=== PATIENT | female | born 1965 | race Hispanic/Latino ===

== ENCOUNTER → 2021-12-05 | Outpatient (CLI) | payer OTHER | END | disposition home or self-care (01) | LOC: OIH 08:01 | PROVIDERS: ATTEND Nurse Practitioner Family | DX: Z13.6 Encounter for screening for cardiovascular disorders (principal); I25.10 Atherosclerotic heart disease of native coronary artery without angina pectoris; I51.5 Myocardial degeneration | CPT/HCPCS: 75571 ==

== ENCOUNTER → 2022-01-29 | Outpatient (CLI) | payer BC ==
[~2022-01-29] MED LIST: REGADENOSON 0.4 MG/5 ML PF SYG IVP SCH
== END | disposition home or self-care (01) ==
LOC: OIH 09:12
PROVIDERS: ATTEND Internal Medicine Cardiovascular Disease
DX: R07.9 Chest pain, unspecified (principal)
CPT/HCPCS: 78452; 93017; 96374; A9500 ×2; J2785

== ENCOUNTER 2022-04-23 06:00 | Day surgery (SDC) | payer BC ==
[2022-04-20 13:03] LABS: EOSINOPHILS % (AUTO) 1.5 % (0.0-8.0); MEAN CORPUSCULAR HGB CONC 33.5 g/dL (32.0-36.0); MEAN CORPUSCULAR VOLUME 86.5 fL (79-99); MONOCYTES % (AUTO) 3.6 % (3.0-13.0); NEUTROPHILS % (AUTO) 62.4 % (40.0-77.0); PLATELET COUNT (AUTO) 268 K/uL (130-400); RED BLOOD CELL COUNT(AUTO) 4.97 MIL/uL (4.00-5.50); RED CELL DISTRIBUTION WIDTH 13.4 % (11.0-15.5); WHITE BLOOD COUNT (AUTO) 8.8 K/uL (4.8-10.8)
[2022-04-20 13:17] LABS: CREATININE 0.8 mg/dL (0.5-1.5); POTASSIUM 3.8 mmol/L (3.5-5.1)
[2022-04-20 13:18] LABS: INR 0.93 (0.85-1.15)
[2022-04-20 13:19] LABS: PARTIAL THROMBOPLASTIN TIME 24.8 SEC (26.3-35.5)
[2022-04-22 11:49] VITALS: BP 145/97
[2022-04-23] VITALS (8 sets, daily range): BP systolic 99–161; BP diastolic 62–97
[~2022-04-23] VITALS: Ht 154.9 cm; Wt 57.8 kg
[~2022-04-23 06:00] MED LIST changes: +AEC81 PO; +ATOR40TA69 PO; +BENA1TAB77 PO; +CETI10TA57 PO; +COLE1TAB2 PO; +DAPA10TA PO; +METF750T46 PO; +METO-408 PO; +OMEP20CA12 PO; -REGADENOSON 0.4 MG/5 ML PF SYG IVP SCH; +SEMA2PEN SQ; +SERT-439 PO; +SITA100T12 PO
[2022-04-23] MEDS ORDERED: NITROGLYCERIN 50MG VIAL ONE (07:14)
[2022-04-23] MEDS ORDERED: IOHEXOL 350 MG/ML 100ML INFUS..BTL IV ONE (07:14)
[2022-04-23] MEDS ORDERED: LIDOCAINE PF 100MG/5ML (2%) SYRINGE 5ML ONE (07:14)
[2022-04-23] MEDS ORDERED: IOHEXOL-350 50ML VIAL IV ONE (07:14)
[2022-04-23] MEDS ORDERED: MIDAZOLAM HCL 1 MG/ML 2ML VIAL ONE ×2 (07:32→09:37)
[2022-04-23] MEDS ORDERED: FENTANYL CITRATE PF 50 MCG/1 ML 2ML VIAL ONE (07:33)
[2022-04-23] MEDS ORDERED: LABETALOL 20MG SYG IV ONE ×3 (08:22→09:08)
[2022-04-23] MEDS ORDERED: IOHEXOL-350 75 ML VIAL IV ONE ×2 (08:28→09:20)
[2022-04-23] MEDS ORDERED: HEPARIN 10,000 UNIT/10ML (1,000 UNIT/ML) VIAL ONE (08:32)
[2022-04-23] MEDS ORDERED: ASPIRIN 325MG EC TAB PO ONE (08:33)
[2022-04-23] MEDS ORDERED: CLOPIDOGREL 300MG TAB ONE (08:33)
[2022-04-23] MEDS ORDERED: 0.9%NACL 1000ML 1,000 ML IV ONE (08:40)
[2022-04-23] MEDS ORDERED: ONDANSETRON 4MG INJ ONE (09:24)
[2022-04-23] MEDS ORDERED: 0.9%NACL 1000ML 1,000 ML IV SCH (10:30)
[2022-04-23] MEDS ORDERED: CLOP75TA14 PO (12:17)
[2022-04-24] MEDS ORDERED: CEPH500B PO (19:20)
== END 2022-04-23 14:00 | disposition home or self-care (01) ==
LOC: DAH 06:00
PROVIDERS: ATTEND Internal Medicine Cardiovascular Disease
DX: I25.119 Atherosclerotic heart disease of native coronary artery with unspecified angina pectoris (principal); I10 Essential (primary) hypertension; E78.5 Hyperlipidemia, unspecified; Z79.899 Other long term (current) drug therapy; Z98.890 Other specified postprocedural states; Z90.710 Acquired absence of both cervix and uterus; Z90.49 Acquired absence of other specified parts of digestive tract; Z79.01 Long term (current) use of anticoagulants; Z95.5 Presence of coronary angioplasty implant and graft
CPT/HCPCS: 80048; 85025; 85610; 85730; 36415 ×2; 71045; 93005; 93454; 85347 ×2; C1887 ×2; C1894 ×2; C1769 ×2; C1760; C1874; C1725; Q9965; J3010; J7030; J2001; J1644 ×3; J2250 ×2; J2405; J3490; Q9967 ×3; C9600; 99156; 99157

== ENCOUNTER 2022-04-24 18:11 | Emergency (ER) | payer BC ==
[~2022-04-24] VITALS: Ht 154.9 cm; Wt 57.2 kg
[~2022-04-24 18:11] MED LIST changes: +CLOP75TA14 PO
[2022-04-24 18:54] LABS: BASOPHILS % (AUTO) 0.6 % (0.0-5.0); EOSINOPHILS % (AUTO) 1.1 % (0.0-8.0); HEMATOCRIT 38.8 % (36-48); MEAN CORPUSCULAR HEMOGLOBIN 29.1 pg (27.0-33.0); MEAN CORPUSCULAR HGB CONC 33.5 g/dL (32.0-36.0); MEAN CORPUSCULAR VOLUME 86.8 fL (79-99); MONOCYTES % (AUTO) 4.9 % (3.0-13.0); NEUTROPHILS % (AUTO) 75.9 % (40.0-77.0); PLATELET COUNT (AUTO) 257 K/uL (130-400); RED BLOOD CELL COUNT(AUTO) 4.47 MIL/uL (4.00-5.50); RED CELL DISTRIBUTION WIDTH 13.6 % (11.0-15.5); WHITE BLOOD COUNT (AUTO) 13.6 K/uL (4.8-10.8)
[2022-04-24 18:56] LABS: APPEARANCE,URINE CLOUDY (CLEAR); BILIRUBIN,URINE NEGATIVE (NEGATIVE); COLOR,URINE ORANGE (YELLOW); GLUCOSE, URINE (UA) >=1000 mg/dL (NEGATIVE); KETONES,URINE NEGATIVE (NEGATIVE); LEUKOCYTE ESTERASE ,URINE MODERATE (NEGATIVE); NITRATE,URINE NEGATIVE (NEGATIVE); OCCULT BLOOD,URINE LARGE (NEGATIVE); PH,URINE 6.5 (5.0-8.0); PROTEIN,URINE TRACE mg/dL (NEGATIVE); UROBILINOGEN,URINE 0.2 mg/dL (0.2-1.0)
[2022-04-24 19:03] LABS: POTASSIUM 3.1 mmol/L (3.5-5.1)
[2022-04-24 19:05] LABS: BACTERIA,URINE Rare /HPF (None Seen); RBC,URINE >100 /HPF (0-1); WBC,URINE 26-50 /HPF (0-1)
[2022-04-24 19:06] LABS: SQUAMOUS EPITHELIAL CELL,UR None Seen /HPF (0-2)
[2022-04-24 19:09] LABS: ALBUMIN 4.1 g/dL (3.5-5.0); TOTAL PROTEIN, SERUM 7.5 g/dL (6.0-8.3)
[2022-04-24] MEDS ORDERED: CEPH500B PO (19:20)
[2022-04-24 19:29] VITALS: BP 163/81
[2022-04-24] MEDS: CEFTRIAXONE 1G VIAL IVP ONE (19:29)
[2022-04-24] MEDS: POTASSIUM BICARB/CIT AC 25 MEQ TABLET.EFF PO ONE (19:29)
[2022-04-24] MEDS ORDERED: CEFTRIAXONE 1G VIAL IM ONE (19:30)
== END 2022-04-24 19:52 | disposition home or self-care (01) ==
LOC: EDH 18:11
DX: N30.90 Cystitis, unspecified without hematuria (principal); E11.9 Type 2 diabetes mellitus without complications; E78.00 Pure hypercholesterolemia, unspecified; I10 Essential (primary) hypertension; Z98.890 Other specified postprocedural states; Z79.899 Other long term (current) drug therapy; Z79.82 Long term (current) use of aspirin; Z90.49 Acquired absence of other specified parts of digestive tract
CPT/HCPCS: 99284; 96374; 80053; 85025; 87077; 87088; 87186; 81001; 36415; J0696

== ENCOUNTER → 2022-04-28 | Outpatient (CLI) | payer BC ==
[~2022-04-28] MED LIST changes: +CEPH500B PO
== END | disposition home or self-care (01) ==
LOC: RAH 15:57
PROVIDERS: ATTEND Student in an Organized Health Care Education/Training Program
DX: I72.4 Aneurysm of artery of lower extremity (principal)
CPT/HCPCS: 76882

== ENCOUNTER → 2022-05-11 | Outpatient (CLI) | payer BC ==
[~2022-05-11] MED LIST changes: +RANO500T3 PO
== END | disposition home or self-care (01) ==
LOC: RAH 13:11
PROVIDERS: ATTEND Internal Medicine Cardiovascular Disease
DX: M79.81 Nontraumatic hematoma of soft tissue (principal)
CPT/HCPCS: 76882

== ENCOUNTER 2022-05-12 05:44 | Observation (INO) | payer BC ==
[2022-05-10 13:13] LABS: BASOPHILS % (AUTO) 0.9 % (0.0-5.0); EOSINOPHILS % (AUTO) 1.5 % (0.0-8.0); HEMATOCRIT 44.2 % (36-48); MEAN CORPUSCULAR HEMOGLOBIN 29.6 pg (27.0-33.0); MEAN CORPUSCULAR HGB CONC 33.9 g/dL (32.0-36.0); MEAN CORPUSCULAR VOLUME 87.2 fL (79-99); MONOCYTES % (AUTO) 3.9 % (3.0-13.0); NEUTROPHILS % (AUTO) 73.1 % (40.0-77.0); PLATELET COUNT (AUTO) 319 K/uL (130-400); RED BLOOD CELL COUNT(AUTO) 5.07 MIL/uL (4.00-5.50); RED CELL DISTRIBUTION WIDTH 13.5 % (11.0-15.5); WHITE BLOOD COUNT (AUTO) 10.8 K/uL (4.8-10.8)
[2022-05-10 13:23] LABS: INR 0.93 (0.85-1.15); PROTHROMBIN TIME 9.9 SEC (9.6-11.6)
[2022-05-10 13:25] LABS: PARTIAL THROMBOPLASTIN TIME 20.9 SEC (26.3-35.5)
[2022-05-10 13:26] LABS: CREATININE 0.8 mg/dL (0.5-1.5); POTASSIUM 4.2 mmol/L (3.5-5.1)
[2022-05-11 09:40] VITALS: BP 138/83
[~2022-05-12] VITALS: Ht 154.9 cm; Wt 57.1 kg
[2022-05-12] VITALS (16 sets, daily range): BP systolic 103–146; BP diastolic 62–97
[~2022-05-12 05:44] MED LIST changes: +0.9% NACL 500ML IV.SOLN 500 ML IV SCH
[2022-05-12] MEDS ORDERED: 0.9%NACL 1000ML 1,000 ML IV ONE (06:26)
[2022-05-12] MEDS ORDERED: LIDOCAINE HCL 1% 20 ML VIAL ONE (07:18)
[2022-05-12] MEDS ORDERED: HEPARIN 10,000 UNIT/10ML (1,000 UNIT/ML) VIAL ONE (07:18)
[2022-05-12] MEDS ORDERED: IOHEXOL 350 MG/ML 100ML INFUS..BTL IV ONE (07:18)
[2022-05-12] MEDS ORDERED: NITROGLYCERIN 50MG VIAL ONE (07:18)
[2022-05-12] MEDS ORDERED: NICARDIPINE 25MG INJ IV ONE (07:22)
[2022-05-12] MEDS ORDERED: MIDAZOLAM HCL 1 MG/ML 2ML VIAL ONE ×2 (07:49→08:51)
[2022-05-12] MEDS ORDERED: FENTANYL CITRATE PF 50 MCG/1 ML 2ML VIAL ONE ×2 (07:49→08:51)
[2022-05-12] MEDS ORDERED: CLOPIDOGREL 300MG TAB ONE (07:56)
[2022-05-12] MEDS ORDERED: IOHEXOL-350 75 ML VIAL IV ONE (08:43)
[2022-05-12] MEDS ORDERED: HYDRALAZINE 20MG/ML VIAL ONE (08:54)
[2022-05-12] MEDS ORDERED: 0.9%NACL 1000ML 1,000 ML IV SCH (10:00)
[2022-05-12] MEDS ORDERED: GLUCAGON 1MG KIT 1 MG ML IM PRN (10:00)
[2022-05-12] MEDS ORDERED: DEXTROSE 50%-WATER 50 ML DISP.SYRIN IV PRN (10:00)
[2022-05-12] MEDS ORDERED: NITROGLYCERIN 0.4 MG SL TAB SL ONE (10:05)
[2022-05-12] MEDS: NITROGLYCERIN 0.4 MG SL TAB SL SCH (10:30)
[2022-05-12] MEDS ORDERED: NITROGLYCERIN 0.4 MG SL TAB SL PRN (10:30)
[2022-05-12] MEDS ORDERED: ACETAMINOPHEN 500 MG TABLET ONE (12:08)
[2022-05-12] MEDS ORDERED: ACETAMINOPHEN 500 MG TABLET PO ONE (12:30)
[2022-05-12] MEDS: CEPHALEXIN 500 MG CAPSULE PO SCH ×3 (13:00→20:41)
[2022-05-12] MEDS ORDERED: ACETAMINOPHEN 325 MG TAB PO PRN (20:30)
[2022-05-12] MEDS: RANOLAZINE 500 MG TAB.SR.12H PO SCH (20:42)
[2022-05-12] MEDS ORDERED: METFORMIN 750 MG PO SCH (21:00)
[2022-05-12] MEDS ORDERED: ATORVASTATIN 40 MG TABLET PO SCH (21:00)
[2022-05-13 04:06] VITALS: BP 154/86
[2022-05-13 04:27] LABS: HEMATOCRIT 39.8 % (36-48); MEAN CORPUSCULAR HEMOGLOBIN 29.2 pg (27.0-33.0); MEAN CORPUSCULAR HGB CONC 33.4 g/dL (32.0-36.0); MEAN CORPUSCULAR VOLUME 87.3 fL (79-99); RED BLOOD CELL COUNT(AUTO) 4.56 MIL/uL (4.00-5.50); RED CELL DISTRIBUTION WIDTH 13.7 % (11.0-15.5); WHITE BLOOD COUNT (AUTO) 9.1 K/uL (4.8-10.8)
[2022-05-13 07:07] VITALS: BP 137/75
[2022-05-13] MEDS ORDERED: CEPHALEXIN 250 MG CAPSULE ONE (08:23)
[2022-05-13] MEDS: RANOLAZINE 500 MG TAB.SR.12H PO SCH (08:35)
[2022-05-13] MEDS: LINAGLIPTIN 5 MG TABLET PO SCH ×2 (08:38→08:52)
[2022-05-13] MEDS: CEPHALEXIN 500 MG CAPSULE PO SCH (08:59)
[2022-05-13] MEDS ORDERED: COLESTIPOL 2 GM PO SCH (09:00)
[2022-05-13] MEDS ORDERED: CETIRIZINE HCL 5 MG TABLET PO SCH (09:00)
[2022-05-13] MEDS ORDERED: METOPROLOL SUCCINATE 25 MG TAB.SR.24H PO SCH (09:00)
[2022-05-13] MEDS ORDERED: BENAZEPRIL HCL 10 MG TABLET PO SCH (09:00)
[2022-05-13] MEDS ORDERED: PANTOPRAZOLE 40 MG TAB DR PO SCH (09:00)
[2022-05-13] MEDS ORDERED: SERTRALINE HCL 50 MG TABLET PO SCH (09:00)
[2022-05-13] MEDS ORDERED: ASPIRIN 81 MG EC TAB PO SCH (09:00)
[2022-05-13] MEDS ORDERED: CLOPIDOGREL 75MG TAB PO SCH (09:00)
[2022-05-13] MEDS ORDERED: HYDROCHLOROTHIAZIDE 25 MG TABLET PO SCH (09:00)
[2022-05-13] MEDS ORDERED: **HM**FARXIGA 10MG PO SCH (09:00)
[2022-05-13] MEDS: NITROGLYCERIN 0.4 MG SL TAB SL SCH (10:01)
[2022-05-19] MEDS ORDERED: OZEMPIC 2 MG SQ SCH (09:00)
== END 2022-05-13 12:02 | disposition home or self-care (01) ==
LOC: DAH 05:44 → DAHIP 05:45 → 2DH 16:39
PROVIDERS: ADMIT Internal Medicine; ATTEND Internal Medicine
DX: I25.10 Atherosclerotic heart disease of native coronary artery without angina pectoris (principal); I10 Essential (primary) hypertension; R07.89 Other chest pain; E83.52 Hypercalcemia; E11.9 Type 2 diabetes mellitus without complications; E78.5 Hyperlipidemia, unspecified; R93.1 Abnormal findings on diagnostic imaging of heart and coronary circulation; F17.210 Nicotine dependence, cigarettes, uncomplicated; Z95.5 Presence of coronary angioplasty implant and graft; Z90.711 Acquired absence of uterus with remaining cervical stump; Z95.1 Presence of aortocoronary bypass graft; Z98.891 History of uterine scar from previous surgery; Z90.710 Acquired absence of both cervix and uterus; Z79.82 Long term (current) use of aspirin; Z79.899 Other long term (current) drug therapy; Z98.890 Other specified postprocedural states
CPT/HCPCS: 80048 ×2; 85025; 85610; 85730; 36415 ×3; 71045; 93005 ×2; 93458; 85347 ×2; 82948 ×5; 85027; A6260; C1769 ×3; C1894 ×2; C1760; C1887; C1874 ×2; C1725 ×2; Q9965; G0378 ×26; J3010 ×2; J7030; J0360; J3490 ×2; J1644 ×2; J2250 ×2; Q9967 ×2; A4215; A4223 ×3; A4222; A4221; A4663; A4216; A4606; C9600; 99156; 99157

== ENCOUNTER → 2023-07-04 | Outpatient (CLI) | payer BC ==
[~2023-07-04] MED LIST changes: -0.9% NACL 500ML IV.SOLN 500 ML IV SCH; +CLOP-31 PO; -CLOP75TA14 PO
== END | disposition home or self-care (01) ==
LOC: SHCH 13:32
PROVIDERS: ATTEND Internal Medicine Cardiovascular Disease
DX: R01.1 Cardiac murmur, unspecified (principal)
CPT/HCPCS: 93306

== ENCOUNTER → 2024-03-29 | Outpatient (CLI) | payer BC ==
[2024-03-29 16:40] LABS: BILIRUBIN,TOTAL 0.4 mg/dL (0.2-1.0); CREATININE 0.8 mg/dL (0.5-1.0); POTASSIUM 3.8 mmol/L (3.5-5.1)
== END | disposition home or self-care (01) ==
LOC: LAB 13:38
PROVIDERS: ATTEND Internal Medicine Cardiovascular Disease
DX: R07.9 Chest pain, unspecified (principal)
CPT/HCPCS: 36415; 80053

== ENCOUNTER → 2024-04-04 | Outpatient (CLI) | payer BC ==
[~2024-04-04] MED LIST changes: +IOHEXOL 350 MG/ML 100ML INFUS..BTL IV ONE; +METOPROLOL TARTRATE 1 MG/ML 5ML VIAL IV ONE
== END | disposition home or self-care (01) ==
LOC: RAH 07:45
PROVIDERS: ATTEND Internal Medicine Cardiovascular Disease
DX: R07.9 Chest pain, unspecified (principal)
CPT/HCPCS: 75574; J3490 ×3; Q9967

== ENCOUNTER 2024-04-16 10:06 | Emergency (ER) | payer BC ==
[~2024-04-16] VITALS: Ht 154.9 cm; Wt 52.2 kg
[~2024-04-16 10:06] MED LIST changes: -IOHEXOL 350 MG/ML 100ML INFUS..BTL IV ONE; -METOPROLOL TARTRATE 1 MG/ML 5ML VIAL IV ONE
[2024-04-16 10:14] VITALS: BP 199/108; PULSE 89; RESP 16
[2024-04-16 10:32] LABS: BASOPHILS # (AUTO) 0.07 K/uL (0.00-0.20); BASOPHILS % (AUTO) 0.8 % (0.0-5.0); EOSINOPHILS # (AUTO) 0.15 K/uL (0.00-0.70); EOSINOPHILS % (AUTO) 1.7 % (0.0-8.0); HEMATOCRIT 48.9 % (36-48); IMMATURE GRANULOCYTE ABSOLUTE 0.05 K/uL (0-1); LYMPHOCYTES % (AUTO) 23.3 % (21.0-51.0); MEAN CORPUSCULAR HEMOGLOBIN 30.5 pg (27.0-33.0); MEAN CORPUSCULAR HGB CONC 33.3 g/dL (32.0-36.0); MEAN CORPUSCULAR VOLUME 91.6 fL (79-99); MONOCYTES # (AUTO) 0.4 K/uL (0.1-1.0); MONOCYTES % (AUTO) 4.2 % (3.0-13.0); NEUTROPHILS % (AUTO) 69.4 % (40.0-77.0); PLATELET COUNT (AUTO) 269 K/uL (130-400); RED BLOOD CELL COUNT(AUTO) 5.34 MIL/uL (4.00-5.50); RED CELL DISTRIBUTION WIDTH 12.4 % (11.0-15.5); WHITE BLOOD COUNT (AUTO) 8.6 K/uL (4.8-10.8)
[2024-04-16 10:43] LABS: CREATININE 0.8 mg/dL (0.5-1.0); POTASSIUM 3.6 mmol/L (3.5-5.1)
[2024-04-16 10:47] LABS: ALBUMIN 4.7 g/dL (3.5-5.0); BILIRUBIN,TOTAL 0.9 mg/dL (0.2-1.0); MAGNESIUM 1.7 mg/dL (1.80-2.40); TOTAL PROTEIN, SERUM 8.5 g/dL (6.0-8.3)
[2024-04-16 11:03] LABS: INR 0.97 (0.85-1.15); PARTIAL THROMBOPLASTIN TIME 23.6 SEC (26.3-35.5); PROTHROMBIN TIME 10.3 SEC (9.6-11.6)
[2024-04-16] MEDS: ASPIRIN 325MG TAB PO ONE (11:27)
[2024-04-16] MEDS: NITROGLYCERIN 1GM OINT 1 INCH/1GM TD ONE (11:27)
[2024-04-16] MEDS: MORPHINE 2 MG SYG IVP ONE (11:28)
[2024-04-16 13:40] LABS: ADD UA MICROSCOPIC YES; APPEARANCE,URINE CLEAR (CLEAR); BILIRUBIN,URINE NEGATIVE (NEGATIVE); COLOR,URINE LIGHT-YELLOW (YELLOW); GLUCOSE, URINE (UA) >=1000 mg/dL (NEGATIVE); KETONES,URINE NEGATIVE (NEGATIVE); LEUKOCYTE ESTERASE ,URINE NEGATIVE Leu/uL (NEGATIVE); NITRATE,URINE NEGATIVE (NEGATIVE); OCCULT BLOOD,URINE NEGATIVE (NEGATIVE); PH,URINE 6.5 (5.0-8.0); PROTEIN,URINE NEGATIVE (NEGATIVE); UROBILINOGEN,URINE 0.2 mg/dL (0.2-1.0)
[2024-04-16 13:55] LABS: MUCUS,URINE RARE LPF (None Seen); RBC,URINE 0-1 /HPF (0-1); SQUAMOUS EPITHELIAL CELL,UR RARE /HPF (0-2); WBC,URINE 0-1 /HPF (0-1)
== END 2024-04-16 14:40 | disposition home or self-care (01) ==
LOC: EDH 10:06
DX: R07.89 Other chest pain (principal); E11.65 Type 2 diabetes mellitus with hyperglycemia; E78.00 Pure hypercholesterolemia, unspecified; I10 Essential (primary) hypertension; Z20.822 Contact with and (suspected) exposure to COVID-19; Z79.82 Long term (current) use of aspirin; Z79.84 Long term (current) use of oral hypoglycemic drugs; Z79.899 Other long term (current) drug therapy; Z90.49 Acquired absence of other specified parts of digestive tract; Z98.890 Other specified postprocedural states; Z90.710 Acquired absence of both cervix and uterus
CPT/HCPCS: 99284; 96374; 71045; 87426; 83735; 84484 ×3; 80053; 85025; 85610; 85730; 81001; 36415; 93005 ×2; J2270

== ENCOUNTER 2024-05-01 09:11 | Observation (INO) | payer BC ==
[2024-04-27 13:26] LABS: BASOPHILS # (AUTO) 0.05 K/uL (0.00-0.20); BASOPHILS % (AUTO) 0.6 % (0.0-5.0); EOSINOPHILS % (AUTO) 1.3 % (0.0-8.0); IMMATURE GRANULOCYTE ABSOLUTE 0.04 K/uL (0-1); LYMPHOCYTES # (AUTO) 2.3 K/uL (1.0-4.8); LYMPHOCYTES % (AUTO) 29.4 % (21.0-51.0); MEAN CORPUSCULAR HEMOGLOBIN 30.7 pg (27.0-33.0); MEAN CORPUSCULAR HGB CONC 34.5 g/dL (32.0-36.0); MEAN CORPUSCULAR VOLUME 89.1 fL (79-99); MONOCYTES # (AUTO) 0.4 K/uL (0.1-1.0); MONOCYTES % (AUTO) 4.8 % (3.0-13.0); NEUTROPHILS % (AUTO) 63.4 % (40.0-77.0); PLATELET COUNT (AUTO) 285 K/uL (130-400); RED BLOOD CELL COUNT(AUTO) 4.49 MIL/uL (4.00-5.50); RED CELL DISTRIBUTION WIDTH 12.4 % (11.0-15.5); WHITE BLOOD COUNT (AUTO) 7.9 K/uL (4.8-10.8)
[2024-04-27 13:37] LABS: CREATININE 0.8 mg/dL (0.5-1.0); POTASSIUM 3.8 mmol/L (3.5-5.1)
[2024-04-27 13:39] LABS: INR 0.95 (0.85-1.15); PROTHROMBIN TIME 10.3 SEC (9.6-11.6)
[2024-04-27 13:45] VITALS: BP 118/75; PULSE 80; RESP 18
[2024-04-27 13:58] LABS: B-TYPE NATRIURETIC PEPTIDE 9 pg/mL (0-100)
[2024-04-27 14:05] LABS: PARTIAL THROMBOPLASTIN TIME 25.8 SEC (26.3-35.5)
[2024-05-01] VITALS (11 sets, daily range): BP systolic 124–161; BP diastolic 67–105; PULSE 70–86; RESP 14–18; O2SAT 98–99
[~2024-05-01] VITALS: Ht 154.9 cm; Wt 54.6 kg
[~2024-05-01 09:11] MED LIST changes: -CEPH500B PO; -COLE1TAB2 PO; -METO-408 PO; +NICO-704 TD; +PROP20TA7 PO; +RANO10005 PO; -RANO500T3 PO; +SEMA1PEN3 SQ; -SEMA2PEN SQ
[2024-05-01] MEDS: 0.9%NACL 1000ML 1,000 ML IV ONE (10:38)
[2024-05-01] MEDS ORDERED: LIDOCAINE HCL 400MG/20ML VIAL ONE (13:23)
[2024-05-01] MEDS ORDERED: FENTanyl CITRate PF 50 MCG/1 ML 2ML VIAL ONE (13:24)
[2024-05-01] MEDS ORDERED: niCARDIpine 25MG INJ IV ONE (13:25)
[2024-05-01] MEDS ORDERED: MIDAZOLAM HCL 1 MG/ML 2ML VIAL ONE ×2 (13:25→14:52)
[2024-05-01] MEDS ORDERED: HEParin 10,000 UNIT/10ML (1,000 UNIT/ML) VIAL ONE (13:25)
[2024-05-01] MEDS ORDERED: IOHEXOL 350 MG/ML 100ML INFUS..BTL IV ONE ×2 (13:25→13:35)
[2024-05-01] MEDS ORDERED: HEParin-NS 1,000 UNIT/500 ML 1,000 ML IV ONE (13:26)
[2024-05-01] MEDS ORDERED: NITROGLYCERIN 50MG VIAL ONE (13:26)
[2024-05-01] MEDS ORDERED: IOHEXOL-350 50ML VIAL IV ONE (14:09)
[2024-05-01] MEDS ORDERED: CLOPIDOGREL 300MG TAB ONE (14:12)
[2024-05-01] MEDS ORDERED: HEParin-NS 1,000 UNIT/500 ML 500 ML IV ONE (14:50)
[2024-05-01] MEDS: 0.9%NACL 1000ML 1,000 ML IV SCH (16:00)
[2024-05-01] MEDS: acetaMINOPHEN 500 MG TABLET ONE (17:04)
[2024-05-01] MEDS: ATORVASTATIN 40 MG TABLET PO SCH (20:42)
[2024-05-01] MEDS: RANOLAZINE 500 MG TAB.SR.12H PO SCH (20:42)
[2024-05-01] MEDS: PROPRANOLOL HCL 20 MG TAB PO SCH (20:43)
[2024-05-01] MEDS ORDERED: NON-FORMULARY MEDICATION 1 EACH (Ranolazine (Ranolazine ER) 1,000 MG) PO SCH (21:00)
[2024-05-02 03:52] VITALS: BP 141/89; PULSE 75; RESP 18
[2024-05-02 04:14] LABS: HEMATOCRIT 37.9 % (36-48); MEAN CORPUSCULAR HEMOGLOBIN 30.2 pg (27.0-33.0); MEAN CORPUSCULAR HGB CONC 33.5 g/dL (32.0-36.0); MEAN CORPUSCULAR VOLUME 90.2 fL (79-99); RED BLOOD CELL COUNT(AUTO) 4.2 MIL/uL (4.00-5.50); RED CELL DISTRIBUTION WIDTH 12.8 % (11.0-15.5); WHITE BLOOD COUNT (AUTO) 8.9 K/uL (4.8-10.8)
[2024-05-02 04:22] LABS: CREATININE 0.8 mg/dL (0.5-1.0); POTASSIUM 3.6 mmol/L (3.5-5.1)
[2024-05-02 07:00] VITALS: BP 133/98; PULSE 79; RESP 20
[2024-05-02] MEDS: ASPIRIN 81 MG EC TAB PO SCH (07:56)
[2024-05-02] MEDS: SERTraline HCL 50 MG TABLET PO SCH (07:57)
[2024-05-02] MEDS: ceTIRIzine HCL 5 MG TABLET PO SCH (07:57)
[2024-05-02] MEDS: CLOPIDOGREL 75MG TAB PO SCH (07:57)
[2024-05-02] MEDS: beNAZEPril HCL 10 MG TABLET PO SCH (07:57)
[2024-05-02] MEDS: PANTOPRAZOLE 40 MG TAB DR PO SCH (07:57)
[2024-05-02] MEDS: hydroCHLOROthiazide 25 MG TABLET PO SCH (07:58)
[2024-05-02 08:00] VITALS: O2SAT 99
[2024-05-02] MEDS: acetaMINOPHEN 325 MG TAB PO PRN (08:38)
[2024-05-02] MEDS ORDERED: [UNRECOGNIZED DRUG - OTHER] PO SCH (09:00)
[2024-05-02] MEDS ORDERED: NON-FORMULARY MEDICATION 1 EACH (Omeprazole 20 MG) PO SCH (09:00)
[2024-05-02] MEDS ORDERED: HYDROCHLOROTHIAZIDE PO SCH (09:00)
[2024-05-02] MEDS ORDERED: NON-FORMULARY MEDICATION 1 EACH (Cetirizine HCl 10 MG) PO SCH (09:00)
[2024-05-02] MEDS ORDERED: BENAZEPRIL PO SCH (09:00)
[2024-05-02] MEDS: Dapagliflozin Propanediol (Farxiga) 10 MG PO SCH (10:19)
[2024-05-02 11:00] VITALS: BP 126/85; PULSE 78; RESP 20
[2024-05-02 16:00] VITALS: BP 126/85; PULSE 78; RESP 20
[2024-05-02] MEDS ORDERED: PRAS10TA9 PO (17:29)
== END 2024-05-02 17:50 | disposition home or self-care (01) ==
LOC: DAH 09:11 → DAHIP 09:12 → 2DH 18:02
PROVIDERS: ADMIT Internal Medicine Cardiovascular Disease; ATTEND Internal Medicine Cardiovascular Disease
DX: I25.10 Atherosclerotic heart disease of native coronary artery without angina pectoris (principal); R93.1 Abnormal findings on diagnostic imaging of heart and coronary circulation; E78.5 Hyperlipidemia, unspecified; E11.9 Type 2 diabetes mellitus without complications; K21.9 Gastro-esophageal reflux disease without esophagitis; K57.92 Diverticulitis of intestine, part unspecified, without perforation or abscess without bleeding; F41.9 Anxiety disorder, unspecified; Z79.84 Long term (current) use of oral hypoglycemic drugs; Z90.49 Acquired absence of other specified parts of digestive tract; Z90.710 Acquired absence of both cervix and uterus; Z79.899 Other long term (current) drug therapy
CPT/HCPCS: 80048 ×2; 83880; 85025; 85610; 85730; 36415 ×3; 71045; 93005; 93458; 85347; 82948 ×3; 85027; C1894 ×2; C1769 ×3; C1725 ×3; C1760; C1874; C1887 ×2; Q9965 ×2; G0378 ×24; J3010; J3490 ×2; J7030; J1644 ×3; J2250 ×2; Q9967 ×2; A4215; A4223 ×3; A4222; A4221; A4663; A4216; A4606; C9600; 99156; 99157

== ENCOUNTER → 2025-01-26 | Outpatient (CLI) | payer BC ==
[~2025-01-26] MED LIST changes: -CLOP-31 PO; +PRAS10TA9 PO
--- NOTE | 2025-01-28 08:57 | HMCIMG ---
Exam Type: MAMMO SCREENING BILATERAL Clinical Information: ROUTINE SCREENING Comparison: July 07, 2021 Technique: Mammogram with CAD was performed with CC and MLO projections. CAD shows no worrisome regions. FINDINGS: The breasts are heterogeneously dense, which may obscure small masses. No dominant mass or suspicious microcalcification identified. There is no nipple retraction or skin thickening. Benign-appearing calcifications are seen. CAD shows no worrisome regions. IMPRESSION: 1. No mammographic signs of malignancy. 2. Routine follow-up recommended. CATEGORY 2: BENIGN FINDINGS Note: A negative x-ray should not delay biopsy if a dominant or clinically suspicious mass is present, since 8-10% of cancers are not identified by mammography. Dense breasts may obscure an underlying neoplasm.
== END | disposition home or self-care (01) ==
LOC: RAH 10:57
PROVIDERS: ATTEND Nurse Practitioner Family
DX: Z12.31 Encounter for screening mammogram for malignant neoplasm of breast (principal); R92.333 Mammographic heterogeneous density, bilateral breasts; R92.1 Mammographic calcification found on diagnostic imaging of breast
CPT/HCPCS: 77067

== ENCOUNTER → 2025-02-01 | Outpatient (CLI) | payer BC ==
[~2025-02-01] MED LIST changes: +IOHEXOL 350 MG/ML 100ML INFUS..BTL IV ONE
--- NOTE | 2025-02-01 11:37 | HMCIMG ---
CT CARDIAC ANGIO W/CONT. CCTA HISTORY: Chest pain COMPARISON: None TECHNIQUE: Multiple sequential axial images of the chest were obtained along with the CT angiogram of the chest study. Patient was given 100 cc of Omnipaque through intravenous route. FINDINGS: There is no evidence of pulmonary nodule or parenchymal disease. No pleural effusion or pericardial effusion is seen. There is no evidence of pneumothorax. There are normal size mediastinal and hilar lymph nodes. The heart is not enlarged. Degenerative changes of the thoracolumbar spine are present. IMPRESSION: 1. No evidence of pulmonary nodule or effusion is seen. Please see CT angiogram report of coronary arteries.
== END | disposition home or self-care (01) ==
LOC: RAH 08:11
PROVIDERS: ATTEND Internal Medicine Cardiovascular Disease
DX: R07.9 Chest pain, unspecified (principal); M47.815 Spondylosis without myelopathy or radiculopathy, thoracolumbar region
CPT/HCPCS: 75574; Q9967

== ENCOUNTER 2025-06-26 06:42 | Emergency (ER) | payer BC ==
[~2025-06-26] VITALS: Ht 154.9 cm; Wt 55.3 kg
[~2025-06-26 06:42] MED LIST changes: +COLE1TAB2 PO; -IOHEXOL 350 MG/ML 100ML INFUS..BTL IV ONE; -NICO-704 TD
--- NOTE | 2025-06-26 07:11 | ERN ---
ED Note History of Present Illness Stated Complaint: C/O PAIN W/BLEEDING TO RIGHT ARM Chief Complaint: Upper Extremity Pain/Injury Time Seen by MD: 06:56 Dictation: This is a 59-year-old female who presented to the emergency room with her spouse with complaints of right upper extremity pain and bleeding that just started yesterday Patient stated that she usually places the freestyle Sheron sensor on her right arm lateral deltoid area. Knee this time after she placed it she started having pain as well as bleeding from the site. She tried to apply pressure but did not stop. She packed it and put a bandage and came into the ER for further evaluation She takes aspirin and prasugrel . Temperature 98.1 pulse 84 respirations 18 blood pressure 158/107 pulse oximetry of 98% on room air Chronic medical problems include diabetes mellitus, hypertension, hypercholesterolemia-.-patient is on insulin, Ozempic, metformin Januvia and Farxiga for her diabetes and other extensive list of medication. Allergies: Coded Allergies: No Known Drug Allergies (Verified Allergy, Unknown, 01/28/22) niacin (Verified Allergy, Unknown, 02/18/25) Home Meds Active Scripts Prasugrel HCl (Prasugrel HCl) 10 Mg Tablet, 10 MG PO DAILY, #30 TAB 3 Refills Stop clopidogrel Prov:RU LUNA AGACN 05/02/24 Reported Medications Colestipol HCl (Colestipol HCl) 1 Gram Tablet, 1 GM PO DAILY PRN for ABDOMINAL PAIN, TAB 02/18/25 Semaglutide (Ozempic) 1 Mg/0.75 Ml (4 Mg/3 Ml) Pen.injctr, 1 MG SQ SAT 04/27/24 Propranolol HCl (Propranolol HCl) 20 Mg Tablet, 20 MG PO BID, TAB 04/27/24 Ranolazine (Ranolazine ER) 1,000 Mg Tab.er.12h, 1000 MG PO BID, TAB 04/27/24 Atorvastatin Calcium (LIPITOR) 80 Mg Tablet, 80 MG PO HS, TAB 04/22/22 Metformin HCl (Metformin HCl ER) 750 Mg Tab.er.24h, 750 MG PO HS, TAB 04/22/22 Aspirin (ASPIRIN 81 MG ECTAB) 81 Mg Ectab, 81 MG PO DAILY, TAB.EC 04/22/22 Dapagliflozin Propanediol (Farxiga) 10 Mg Tablet, 10 MG PO DAILY, TAB 04/22/22 Sertraline HCl (Sertraline HCl) 50 Mg Tablet, 50 MG PO DAILY, TAB 04/22/22 Cetirizine HCl (Cetirizine HCl) 10 Mg Tablet, 10 MG PO DAILY, TAB 04/22/22 Benazepril/Hydrochlorothiazide (Benazepril-Hctz 10-12.5 mg Tab) 1 Each Tablet, 1 EACH PO DAILY, TAB 04/22/22 Omeprazole (Omeprazole) 20 Mg Capsule.dr, 20 MG PO DAILY, CAP 04/22/22 Sitagliptin Phosphate (Januvia) 100 Mg Tablet, 100 MG PO DAILY, TAB 04/22/22 Past Medical History Past Medical History: Diabetes-Type II, High Cholesterol, Hypertension Surgical History: Other Surgical History Other: CARDIAC STENTS X 3 Family History: Negative Social History: Negative History: Not Applicable RN Note Reviewed/Agreed w/PFSH: Yes Review of System Dictation Constitutional: Negative for fever,chills, and weight loss Eyes: Negative for injury, pain,redness, and discharge ENT: Negative for injury,pain or swelling Cardiovascular: Negative for chest pain, palpitations, and edema Respiratory: Negative for shortness of breath, cough, and wheezing, Abdomen/GI: Negative for abdominal pain, nausea, vomiting, diarrhea, and constipation Back: Negative for injury and pain : Negative for injury, bleeding and discharge MS/Extremity: Negative for injury and deformity positive for pain in the right lateral arm and bleeding Skin: Negative for rash, and discoloration Neuro: Negative for headache, weakness, numbness, tingling, and seizure Psych: Negative for suicide ideation, homicidal ideation, and hallucinations Initial Vital Sign VS Vital Signs Date Time Temp Pulse Resp B/P (MAP) Pulse Ox O2 Delivery O2 Flow Rate FiO2 06/26/25 06:45 98.1 84 18 158/107 98 Room Air 06/26/25 07:40 0 21 Physical Exam Dictation General: awake, alert, NAD Head/Face: Normocephalic, atraumatic Eyes: PERRL, EOMI, vision at baseline ENT: oral cavity clear, TMs clear, no signs of infection Neck: Trachea midline, supple, no nuchal rigidity Cardiovascular: RRR, normal S1/S2, No MRGs, no JVD Respiratory: CTAB, no respiratory distress, No rales or wheezes Abdomen: Soft, non-tender, non-distended, normal bowel sounds, no guarding or rebound. Skin: Warm, dry, normal turgor, no rash MS/Extremity: Pulses equal, no cyanosis, neurovascular intact, FROM right arm deltoid area freestyle Sheron is in place with an [place] bandage and dressing Neuro: COAx4, GCS 15, strength 5/5, CN 2-12 intact, normal cerebellar exam, normal gait, Psych: Normal behavior, mood, and affect normal Extremities-trace edema without any palpable cords, Homans sign is negative Results (Laboratory/Radiology) Laboratory/Radiology Laboratory Tests Test 06/26/25 07:05 White Blood Count 7.3 K/uL (4.8-10.8) Red Blood Count 4.42 MIL/uL (4.00-5.50) Hemoglobin 12.5 g/dL (12.0-16.0) Hematocrit 39.1 % (36-48) Mean Corpuscular Volume 88.5 fL (79-99) Mean Corpuscular Hemoglobin 28.3 pg (27.0-33.0) Mean Corpuscular Hemoglobin Concent 32.0 g/dL (32.0-36.0) Red Cell Distribution Width 13.9 % (11.0-15.5) Platelet Count 298 K/uL (130-400) Mean Platelet Volume 9.3 fL (7.5-10.5) Immature Granulocyte % (Auto) 0.4 % (0-1) Neutrophils (%) (Auto) 68.4 % (40.0-77.0) Lymphocytes (%) (Auto) 22.4 % (21.0-51.0) Monocytes (%) (Auto) 6.0 % (3.0-13.0) Eosinophils (%) (Auto) 1.8 % (0.0-8.0) Basophils (%) (Auto) 1.0 % (0.0-5.0) Neutrophils # (Auto) 5.0 K/uL (1.8-7.7) Lymphocytes # (Auto) 1.6 K/uL (1.0-4.8) Monocytes # (Auto) 0.4 K/uL (0.1-1.0) Eosinophils # (Auto) 0.13 K/uL (0.00-0.70) Basophils # (Auto) 0.07 K/uL (0.00-0.20) Absolute Immature Granulocyte (auto 0.03 K/uL (0-1) Nucleated Red Blood Cells 0.0 % (0.0-0.19) Sodium Level 137 mmol/L (136-145) Potassium Level 3.8 mmol/L (3.5-5.1) Chloride Level 98 mmol/L (101-111) L Carbon Dioxide Level 29 mmol/L (21-32) Blood Urea Nitrogen 19 mg/dL (7-18) H Creatinine 0.7 mg/dL (0.5-1.0) Glomerular Filtration Rate Calc 98 mL/min (>90) Random Glucose 154 mg/dL (70-105) H Total Calcium 9.1 mg/dL (8.5-10.1) Labs Reviewed?: Yes ED Course ED Course Orders Procedure Category Date Status Time Cbc With Differential LAB 06/26/25 Complete 07:01 Basic Metabolic Panel LAB 06/26/25 Complete 07:01 Tetanus,Diphtheria PHA 06/26/25 Complete Tox [Adult] (Diphther 08:00 Wear Arm Sling When CPOE 06/26/25 Transmitted Ambulating 08:17 Bacitracin PHA 06/26/25 Complete (Bacitracin) 08:30 Current Medications Medications (Trade) Dose Ordered Sig/Nader Route PRN Reason Start Time Stop Time Status Last Admin Dose Admin Bacitracin (Bacitracin) 1 each ONCE ONCE TP 06/26/25 08:30 06/26/25 08:31 DC 06/26/25 08:42 Tetanus/ Diphtheria Toxoids Adsorbed (DiphthERIA-teTANUS TOXOID [ADULT]/ DECAVAC) 0.5 ml ONCE ONCE IM 06/26/25 08:00 06/26/25 08:01 DC 06/26/25 08:44 Vital Signs Date Time Temp Pulse Resp B/P (MAP) Pulse Ox O2 Delivery O2 Flow Rate FiO2 06/26/25 09:00 97.9 76 16 136/91 98 Room Air* 0 21 06/26/25 07:40 97.9 82 16 160/97 98 Room Air* 0 21 06/26/25 06:45 98.1 84 18 158/107 98 Room Air Medical Decision Making MDM Differential diagnosis: Puncture wound, bleeding wound, arterial bleed, venous oozing Rationale: Tests considered and ordered secondary to shared decision making include: Previous outside records reviewed: Old ER visits. Risk of complication and/or morbidity or mortality of patient management: None Medications-Per medication reconciliation Need for hospitalization: Patient does not meet criteria for hospitalization. Need for emergency major/minor surgery: No Patient is a 59-year-old female coming in to be evaluated for right shoulder wound that was bleeding. Per patient she put on her glucose monitor and since then has been bleeding. She followed up with the PCP they put a quick clot on it but has not worked. In the ED labs were collected to make sure there was no anemia or other complications of her diabetes. Using lidocaine local anesthesia was performed using cat gut 6-0, 3 sutures were placed hemostasis obtained. Patient will be discharged in stable condition Procedure Wound Location: upper extremity Wound's Depth, Shape: superficial Irrigated w/ Saline (ccs): 100 Betadine Prep?: Yes Volume Anesthetic (ccs): 5 Wound Repaired With: sutures Suture Size/Type: 6:0 Number of Sutures: 3 Problem List Problem List: (1) Hemorrhage from wound DX & DISP Disposition: Discharge Departure Impression: Primary Impression: Hemorrhage from wound Condition: Stable Additional Instructions: FOLLOW-UP WITH PRIMARY CARE PROVIDER IN 1 TO 2 DAYS. TAKE MEDICATIONS DIRECTED HERE IN THE EMERGENCY ROOM. OKAY TO CONTINUE HOME MEDICATIONS UNLESS OTHERWISE DISCUSSED DURING YOUR VISIT IN THE EMERGENCY ROOM TODAY. RETURN TO YOUR NEAREST EMERGENCY ROOM IF SYMPTOMS WORSEN OR IF THERE IS NO IMPROVEMENT. CALL 911 IF YOU NEED IMMEDIATE ASSISTANCE. TAKE TYLENOL [id number] NEEDED AND IF NO CONTRAINDICATIONS ARE PRESENT. INCREASE ORAL HYDRATION. A WOUND CULTURE OR URINE CULTURE WAS ORDERED HERE IN THE EMERGENCY ROOM DEPARTMENT PLEASE FOLLOW-UP WITH PRIMARY CARE PROVIDER AND ADVISE THEM TO GET REPORTS FROM OUR FACILITY. IF YOU HAD ANY YOANDY WRAP/SPLINTS THAT WERE APPLIED HERE, PLEASE DO NOT REMOVE THEM UNTIL YOU SEE YOUR PRIMARY CARE OR SPECIALTY. Referrals: Referrals: CHRISTIANO FLORES (PCP) Time of Disposition: 07:54 PHILIPPE WEAVER MD Jun 26, 2025 07:11 LAWRENCE SERNA MD Jun 26, 2025 07:55
[2025-06-26 07:20] LABS: IMMATURE GRANULOCYTE ABSOLUTE 0.03 K/uL (0-1); NUCLEATED RED BLOOD CELLS 0.0 % (0.0-0.19); PLATELET COUNT (AUTO) 298 K/uL (130-400); RED BLOOD CELL COUNT(AUTO) 4.42 MIL/uL (4.00-5.50); RED CELL DISTRIBUTION WIDTH 13.9 % (11.0-15.5); WHITE BLOOD COUNT (AUTO) 7.3 K/uL (4.8-10.8)
[2025-06-26 07:25] LABS: CREATININE 0.7 mg/dL (0.5-1.0); GLOMERULAR FILTR. RATE CALC 98.0 mL/min (>90); GLUCOSE,RANDOM 154.0 mg/dL (70-105); SODIUM SERUM 137.0 mmol/L (136-145); UREA NITROGEN, BLOOD 19.0 mg/dL (7-18)
--- NOTE | 2025-06-26 08:01 | NUR ---
NO BLEEDING AT THE MOMENT,POST STITCHES TO R POSTERIOR UPPER ARM.
[2025-06-26] MEDS: BACITRACIN 1 EACH PACKET TP ONE (08:42)
[2025-06-26 09:00] VITALS: BP 136/91; PULSE 76; RESP 16; TEMP 97.9; O2SAT 98
== END 2025-06-26 09:09 | disposition home or self-care (01) ==
LOC: EDH 06:42
DX: L76.22 Postprocedural hemorrhage of skin and subcutaneous tissue following other procedure (principal); E11.9 Type 2 diabetes mellitus without complications; E78.00 Pure hypercholesterolemia, unspecified; I10 Essential (primary) hypertension; Z79.899 Other long term (current) drug therapy; Z95.5 Presence of coronary angioplasty implant and graft; Z79.84 Long term (current) use of oral hypoglycemic drugs; Z79.82 Long term (current) use of aspirin; Z79.02 Long term (current) use of antithrombotics/antiplatelets
CPT/HCPCS: 36415; 80048; 85025; 90471; 90714; 99284